=== PATIENT | male | born 1980 | race Caucasian/White ===

== ENCOUNTER → 2019-12-16 11:36 | Outpatient (CLI) | payer OTHER, SELFPAY ==
--- NOTE | ~2019-12-16 | XR_ITS ---
EXAMINATION: XR chest 2V DATE: 12/16/2019 12:10 INDICATION: Nicotine dependence. TECHNIQUE: Frontal and lateral views of the chest were obtained. COMPARISON: CT abdomen and pelvis 10/05/2017 FINDINGS: The chest demonstrates clear lungs without pneumonia, pleural effusion, or pneumothorax. Th e heart size is normal. IMPRESSION: 1. No acute cardiopulmonary disease. Reviewed, dictated and finalized at location B.
== END ==
PROVIDERS: PCP Family Medicine; Visit Provider Family Medicine
DX: F17.200 Nicotine dependence, unspecified, uncomplicated (principal)
CPT/HCPCS: 71046

== ENCOUNTER → 2020-01-27 07:46 | Outpatient (CLI) | payer OTHER, SELFPAY ==
--- NOTE | ~2020-01-27 | US_ITS ---
EXAMINATION: US right upper quadrant DATE: 01/27/2020 08:23 INDICATION: Follow-up of gallbladder. TECHNIQUE: Multiple grayscale and Doppler ultrasound images of the abdomen were obtained. COMPARISON: Ultrasound 02/08/2018, 08/18/2016, CT abdomen and pelvis 10/05/2017 FINDINGS: The visualized portions of the head and body of the pancreas are normal. There is diffuse h epatic steatosis. There is normal flow in main portal vein. The gallbladder is normal in size and con tains nonshadowing material, consistent with sludge. No gallbladder wall thickening or sonographic Mu rphy sign. The common duct is normal and measures 4 mm. IMPRESSION: 1. Gallbladder sludge. 2. Diffuse hepatic steatosis. Reviewed, dictated and finalized at location B.
== END ==
PROVIDERS: PCP Family Medicine; Visit Provider Family Medicine
DX: K82.4 Cholesterolosis of gallbladder (principal); K76.0 Fatty (change of) liver, not elsewhere classified
CPT/HCPCS: 76705

== ENCOUNTER → 2020-02-29 13:49 | Outpatient (CLI) | payer OTHER, SELFPAY ==
--- NOTE | ~2020-02-29 | CT_ITS ---
EXAMINATION: CT abdomen pelvis w con DATE: 02/29/2020 14:34 INDICATION: Lower abdominal pain. TECHNIQUE: Computed tomography (CT) of the abdomen and pelvis was performed with 100 mL Omnipaque-350 intravenous contrast. Automated exposure control and iterative reconstruction technique were employe d. The dose-length product was 1001.35 mGy-cm. COMPARISON: CT dated 10/05/2017 and ultrasound dated 01/27/2020 FINDINGS: Lung bases are clear. Heart size is normal. No pericardial or pleural effusion. Mild diffuse hepatic steatosis with more focal fat at the ligamentum teres. Again seen are a few peripheral 5 mm or smalle r soft tissue density likely benign gallbladder polyps. Spleen, pancreas, bilateral adrenal glands an d left kidney 6 mm right renal cyst. Are normal. Normal appendix. Mild scattered colonic diverticulos is. There is inflammatory stranding surrounding an approximately 10 cm length of proximal sigmoid col on with prominent edematous wall thickening likely related to diverticulitis with multiple tiny foci of extraluminal gas in the mesenteric fat surrounding high attenuation material containing small dive rticulum. No abscess or more remote free intraperitoneal gas. The stranding extends towards couple lo ops of otherwise normal-appearing small bowel in the central pelvis with no evident organized fistulo us communication. Small amount of likely reactive nonorganized free fluid in the pelvis. Bladder is n ormal. No pathologically enlarged abdominal or pelvic lymphadenopathy. No interval change in small [place] at the right femoral head, left acetabulum and left sacral ala. IMPRESSION: 1. Radiographically uncomplicated diverticulitis. Reviewed, dictated and finalized at location A. ER/WAITRESS ROOM SERVICE
== END ==
PROVIDERS: Visit Provider Nurse Practitioner Family
DX: R10.9 Unspecified abdominal pain (principal); K57.32 Diverticulitis of large intestine without perforation or abscess without bleeding
CPT/HCPCS: 74177; Q9967

== ENCOUNTER 2020-11-26 10:05 | Emergency (ER) | payer OTHER, SELFPAY ==
[2020-11-26 10:25] VITALS: BP 143/103; PULSE 80; RESP 20; TEMP 36.9; O2SAT 98
--- NOTE | 2020-11-26 10:43 | ED.GENADULT ---
HPI - General Adult General Chief complaint: Ear Stated complaint: ear Source: patient and RN notes reviewed Limitations: no limitations History of Present Illness HPI narrative: The unvaccinated patient, a smoker/drinker, presents with left ear discomfort. Patient states he has about 1/2-week history of left ear tenderness that is mild, worse with palpation. He attributes it to possible dental visit 2 weeks ago; however, he has been swimming late last week. No discharge, fever, URI?sinusitis, loss of taste/smell, CP, vomiting/diarrhea, S OB. Related Data Home Medications Medication Instructions Recorded Confirmed ezetimibe 10 mg PO DAILY 11/26/20 11/26/20 omeprazole 40 mg PO DAILY 11/26/20 11/26/20 simvastatin 40 mg PO DAILY 11/26/20 11/26/20 Allergies Allergy/AdvReac Type Severity Reaction Status Date / Time penicillin G Allergy Unknown RASH Verified 11/26/20 10:37 Review of Systems Review of Systems: The patient has been informed that they may have pre-hypertension or Hypertension based on a BP reading in the department. I recommend that the patient call the primary care provider listed on their discharge instructions or a physician of their choice this week to arrange follow up for further evaluation of possible pre-hypertension or Hypertension General/Constitutional: No weight loss,fever Eyes: N0: Redness,discharge Ears/Nose/Throat: No: Epistaxis,ear discharge Respiratory: Denies: Hemoptysis Gastrointestinal: No Vomiting, Bleeding-rectal Skin: No Lumps, eruption Neurologic: No Focal Weakness,Sz Hematologic: Denies: Petechiae/Purpura Psychiatric: No: Suicida ideationl All Other Systems: Reviewed and Negative PMFSH Social History Social History Gender identity (if verbalized by the patient): Male Comments At time of signature, agree with nursing past medical, surgical, social and family history. There is no relevant family history pertinent to the presenting complaint Exam Narrative: General Appearance: Well appearing, Well nourished, No distress EYE: PERRLA EOMI Ears: left EAC with mucopus; right TM ,external ear normal, Auditory canal normal Nose: Normal nose, Nares clear Mouth/Throat: Normal appearing, Normal lips, Supple, Respiratory: Airway patent, No respiratory distress Skin: Warm, Dry Neurological: A&O x3, , Normal affect Course Vital Signs Vital signs: Vital Signs Temperature 98.4 F 11/26/20 10:25 Pulse Rate 80 11/26/20 10:25 Respiratory Rate 20 11/26/20 10:25 Blood Pressure 143/103 H 11/26/20 10:25 Pulse Oximetry 98 11/26/20 10:25 Temperature 98.4 F 11/26/20 10:25 Pulse Rate 80 11/26/20 10:25 Respiratory Rate 20 11/26/20 10:25 Blood Pressure 143/103 H 11/26/20 10:25 Pulse Oximetry 98 11/26/20 10:25 Medical Decision Making Vital Signs Vital Signs: Vital Signs Temperature 98.4 F 11/26/20 10:25 Pulse Rate 80 11/26/20 10:25 Respiratory Rate 20 11/26/20 10:25 Blood Pressure 143/103 H 11/26/20 10:25 Pulse Oximetry 98 11/26/20 10:25 Temperature 98.4 F 11/26/20 10:25 Pulse Rate 80 11/26/20 10:25 Respiratory Rate 20 11/26/20 10:25 Blood Pressure 143/103 H 11/26/20 10:25 Pulse Oximetry 98 11/26/20 10:25 Discharge Plan Discharge Clinical Impression: Otitis externa Qualifiers: Otitis externa type: unspecified type Chronicity: acute Laterality: left Qualified Code(s): H60.502 - Unspecified acute noninfective otitis externa, left ear Patient Disposition: Home, Self-Care Condition: Stable Instructions: Swimmer's Ear (ED) Prescriptions: New vjfnbjar-oeafbaguq-MF 3.5-10,000-1 mg/mL-unit/mL-% solution 4 drop RIGHT EAR Q8H Qty: 10 RF: 0 tramadol 50 mg tablet 50 mg PO TID PRN (Reason: pain) Qty: 14 RF: 0 ciprofloxacin HCl [Cipro] 250 mg tablet 250 mg PO Q12H Qty: 6 RF: 0 No Action omeprazole 40 mg capsule,delayed release(DR/EC) 40 mg PO DAILY RF: 0 s
== END 2020-11-26 10:55 | disposition home or self-care (01) ==
PROVIDERS: Emergency Provider Emergency Medicine; PCP Nurse Practitioner Family
DX: H92.02 Otalgia, left ear (principal); H60.502 Unspecified acute noninfective otitis externa, left ear; E78.00 Pure hypercholesterolemia, unspecified; K21.9 Gastro-esophageal reflux disease without esophagitis
CPT/HCPCS: 99213; G0463

== ENCOUNTER → 2022-10-15 08:02 | Outpatient (CLI) | payer OTHER, SELFPAY ==
--- NOTE | ~2022-10-15 | US_ITS ---
Limited Abdominal Sonogram: Real-time sonographic imaging of the right upper quadrant was performed. Clinical History: Abnormal liver studies COMPARISON: 01/27/2020 Findings: The liver appears echogenic, with no evidence of mass lesion or bile duct dilatation. Main portal vein demonstrates normal direction of flow. The gallbladder is well distended, with multiple nonmobile well gallbladder wall polyps present. Polyps measure up to approximately 8-9 mm in maximum diameter.. The common bile duct measures 4 mm. The pancreas is largely obscured by bowel gas shadowi ng. Impression: Multiple apparent gallbladder wall polyps, similar appearance to prior exam. Diffuse fatty infiltration of liver. Reviewed, dictated and finalized at location . Impression: Multiple apparent gallbladder wall polyps, similar appearance to prior exam. Diffuse fatty infiltration of liver.
== END ==
PROVIDERS: PCP Nurse Practitioner Family; Visit Provider Nurse Practitioner Family
DX: R94.5 Abnormal results of liver function studies (principal); K82.4 Cholesterolosis of gallbladder; K76.0 Fatty (change of) liver, not elsewhere classified
CPT/HCPCS: 76705

== ENCOUNTER 2022-11-18 09:20 | Emergency (ER) | payer OTHER, SELFPAY ==
--- NOTE | ~2022-11-18 | XR_ITS ---
EXAMINATION: [id number] DATE: 11/18/2022 09:48 INDICATION: Chest injury and pain. TECHNIQUE: A frontal view of the chest and 2 views on 4 radiographs of the left ribs were obtained. COMPARISON: Chest 2 views 12/16/2019, CT abdomen and pelvis 02/29/2020 FINDINGS: The chest demonstrates clear lungs without pneumonia, pleural effusion, or pneumothorax. Th e heart size is normal. IMPRESSION: 1. No rib fracture. Reviewed, dictated and finalized at location A. IMPRESSION: 1. No rib fracture.
--- NOTE | 2022-11-18 09:21 | ED.FALL ---
HPI - Fall General Chief Complaint: Extremity Injury, Upper Stated Complaint: fall Time Seen by Provider: 11/18/22 09:21 Source: patient Mode of arrival: ambulatory Limitations: no limitations History of Present Illness MD complaint: other (Mr. Pineda is a 42-year-old male patient presenting to the clinic today with complaints of left rib pain after falling into railing on Thursday night. He reports he was coming down some stairs on the deck and missed a step and ran into the railing on his left side. Is having left rib pain. ) Related Data Home Medications Medication Instructions Recorded Confirmed ezetimibe 10 mg tablet 10 mg PO DAILY 11/26/20 11/18/22 omeprazole 40 mg capsule,delayed 40 mg PO DAILY 11/26/20 11/18/22 release simvastatin 40 mg tablet 40 mg PO DAILY 11/26/20 11/18/22 lisinopril 20 1 tablet PO DAILY 11/18/22 11/18/22 mg-hydrochlorothiazide 12.5 mg tablet trazodone 50 mg tablet 50 mg PO HS 11/18/22 11/18/22 Allergies Allergy/AdvReac Type Severity Reaction Status Date / Time penicillin G AdvReac Mild RASH Verified 11/18/22 09:21 Review of Systems Review of Systems: Pertinent positives per HPI. Patient denies any fever, chills, rash, headache, visual changes, dizziness, cough, runny nose, sore throat, shortness of breath, chest pain, palpitations, nausea, vomiting, diarrhea, constipation, abdominal pain, or any urinary issues. PMFSH Social History Social History Gender identity (if verbalized by the patient): Male Comments At the time of my signature, I reviewed and agree with the nursing past medical, surgical, social, and family history. There is no relevant family history pertinent to the patient complaint. Exam Narrative: General: Well-developed, well nourished, in no apparent distress Head: Normocephalic, atraumatic. Cardio: Regular rate and rhythm, s1 and s2 normal, no murmur appreciated. Resp: Clear to auscultation bilaterally, no rhonchi, rales, wheezing or rubs. Musculoskeletal: No deformity, bruising noted to the upper left ribs/lateral ribs, pain to palpation over the left anterior and lateral ribs, grossly normal range of motion, muscle strength strong and equal, peripheral pulse strong, no edema, no cyanosis, normal gait and station Course Course Emergency Course: Portions of this record may have been created with voice recognition software. Level of Care: Express Care Visit Vital Signs Vital signs: Vital signs reviewed MDM - Fall MDM Narrative Medical decision making narrative: At the time of visit patient is tearful on the exam table. Patient having pain with coughing, sneezing, and taking deep breaths. Has taken ibuprofen and Tylenol and has not touch the pain. Left unilateral ribs x-ray was performed in the clinic today and negative for any sign of fracture. I suspect patient has left rib contusion with acute chest wall pain. I will place the patient on a prescription for naproxen and give him a few days of tramadol. Incentive spirometer was given to the patient instructions how to use was reviewed. Supportive measures were discussed with the patient he voiced understanding discharge instructions and agrees to treatment plan Differential Diagnosis Differential diagnosis: Likely other (Rib fracture, rib contusion, chest wall contusion, pneumothorax, soft tissue injury) Imaging Data Radiologist's impression: [place] [address] XRay Report Signed Patient: Maximo Pineda : 1980 MR#: [id number] Age/Sex: 42 / M Acct:[id number] Loc: [facility]? ? ADM Date: 11/18/22Attending Dr: Ordering Physician: Aaron Richard APRN Date of Service: 11/18/22 Procedure(s): XR ribs LT w PA CXR Accession Number(s): [id number] cc: Clementina, Elba Ku APN; Aaron Richard APRN~ EXAMINATION: XR_RIBSL
[2022-11-18 09:23] VITALS: BP 161/90; PULSE 114; RESP 18; TEMP 36.1; O2SAT 99
== END 2022-11-18 10:07 | disposition home or self-care (01) ==
PROVIDERS: Emergency Provider Nurse Practitioner Family; PCP Nurse Practitioner Family
DX: S20.212A Contusion of left front wall of thorax, initial encounter (principal); W10.9XXA Fall (on) (from) unspecified stairs and steps, initial encounter; E78.00 Pure hypercholesterolemia, unspecified; I10 Essential (primary) hypertension; K21.9 Gastro-esophageal reflux disease without esophagitis
CPT/HCPCS: 71101; 99213; G0463

== ENCOUNTER 2023-05-30 10:59 | Emergency (ER) | payer OTHER, SELFPAY ==
[2023-05-30 11:17] VITALS: BP 138/68; PULSE 126; RESP 18; TEMP 37; O2SAT 97
--- NOTE | 2023-05-30 11:44 | ED.URI ---
HPI - URI/Sore Throat General Chief Complaint: Upper Respiratory Infection Stated Complaint: 102 temp,aches and pain,chills, hot flashes Time Seen by Provider: 05/30/23 11:26 Source: patient and RN notes reviewed Mode of arrival: ambulatory Limitations: no limitations History of Present Illness HPI Narrative: Patient presents today complaining of cough of fatigue that started last night with nausea, body aches, chills, postnasal drip, and fever up to 102 that started this morning. Patient had some brief influenza exposure. Related Data Home Medications Medication Instructions Recorded Confirmed ezetimibe 10 mg tablet 10 mg PO DAILY 11/26/20 05/30/23 omeprazole 40 mg capsule,delayed 40 mg PO DAILY 11/26/20 05/30/23 release simvastatin 40 mg tablet 40 mg PO DAILY 11/26/20 05/30/23 lisinopril 20 1 tablet PO DAILY 11/18/22 05/30/23 mg-hydrochlorothiazide 12.5 mg tablet trazodone 50 mg tablet 50 mg PO HS 11/18/22 05/30/23 Allergies Allergy/AdvReac Type Severity Reaction Status Date / Time penicillin G AdvReac Mild RASH Verified 05/30/23 11:08 Review of Systems Review of Systems: CONSTITUTIONAL: + fatigue, body aches, chills EYES: Denies visual changes, redness, or discharge. ENT: Denies rhinorrhea, congestion, sore throat, or otalgia.+ nausea CARDIOVASCULAR: Denies chest pain, palpitations, or edema. RESPIRATORY: Denies dyspnea.+ cough GASTROINTESTINAL: Denies abdominal pain, vomiting, or diarrhea.+ nausea GENITOURINARY: Denies dysuria or hematuria. SKIN: Denies rash, itching, or wounds. MUSCULOSKELETAL: Denies back pain, joint pain, or myalgia. NEUROLOGIC: Denies headache, numbness, tingling, or weakness. PSYCH: Denies depression or anxiety. [facility] Social History Social History Gender identity (if verbalized by the patient): Male Comments At time of signature, I have reviewed and agree with nursing past medical, surgical, social and family history unless otherwise noted. Please see nursing chart for further information. There is no relevant family history pertinent to the presenting complaint Exam Narrative: GENERAL: Mildly ill-appearing, well-nourished, and in no acute distress. HEAD: Normocephalic, atraumatic. EYES: EOMI. No redness or drainage. Conjunctivae normal. ENT: Mucous membranes pink and moist. Nares clear. No rhinorrhea. TMs normal bilaterally. Throat normal. Uvula midline. NECK: Normal AROM. Supple. No lymphadenopathy. CHEST: No respiratory distress. Clear to auscultation. HEART: Regular rate and rhythm. No murmur appreciated. EXTREMITIES: Normal range of motion. No edema. SKIN: Warm, dry, no rash. Capillary refill normal. Normal skin turgor. NEURO: No focal deficits. Alert and oriented x3. Gait steady. PSYCH: Normal affect. No signs of depression or anxiety. Course Course Level of Care: Express Care Visit Vital Signs Vital signs: Vital Signs Temperature 98.6 F 05/30/23 11:17 Pulse Rate 126 H 05/30/23 11:17 Respiratory Rate 18 05/30/23 11:17 Blood Pressure 138/68 05/30/23 11:17 Pulse Oximetry 97 05/30/23 11:17 Oxygen Delivery Room Air 05/30/23 11:17 Temperature 98.6 F 05/30/23 11:17 Pulse Rate 126 H 05/30/23 11:17 Respiratory Rate 18 05/30/23 11:17 Blood Pressure 138/68 05/30/23 11:17 Pulse Oximetry 97 05/30/23 11:17 Oxygen Delivery Room Air 05/30/23 11:17 Reviewed MDM - URI/Sore Throat MDM Narrative Medical decision making narrative: Testing negative. Symptoms likely viral. Since patient came in the early within his symptoms starting, could still have influenza with a negative result today. Patient would like to try some Tamiflu to see if this makes a difference with his symptoms. Prescription sent to pharmacy. Anticipatory guidance given. Differential Diagnosis Differential diagnosis: Likely upper respiratory infection, sinusitis, viral infecti
== END 2023-05-30 11:48 | disposition home or self-care (01) ==
PROVIDERS: Emergency Provider Nurse Practitioner; PCP Nurse Practitioner Family
DX: J11.1 Influenza due to unidentified influenza virus with other respiratory manifestations (principal); E78.00 Pure hypercholesterolemia, unspecified; I10 Essential (primary) hypertension; K21.9 Gastro-esophageal reflux disease without esophagitis
CPT/HCPCS: 99213; G0463

== ENCOUNTER 2024-08-25 15:23 | Outpatient (CLI) | payer OTHER, SELFPAY ==
--- NOTE | ~2024-08-25 | CT_ITS ---
Non-contrast CT scan of the Abdomen and Pelvis Clinical indication: Bilateral groin pain Technique: 2.5 mm axial scans were obtained through the abdomen and pelvis without intravenous or or al contrast. Dose reduction technique was used on this scan by utilizing automated exposure control a nd iterative reconstruction technique. The dose-length product (DLP) was 1020.56 mGy-cm. Findings: Images through the lung bases reveal no abnormalities. There is no evidence of renal or ureteral calculi. The kidneys and the ureters are nondilated. The liver, spleen, pancreas, and adrenals appear normal. Small gallstones are present. There is no ao rtic aneurysm. There is wall thickening and pericolic inflammatory change the mid sigmoid colon. Questionable 1.3 cm developing intramural abscess. No free air. No bowel obstruction. Images through the pelvis were performed. There is no evidence of ascites or lymphadenopathy. Urinary bladder unremarkable. No pelvic mass evident. Impression: Acute sigmoid diverticulitis with questionable 1.3 cm developing intramural abscess. No free air or b owel obstruction. Reviewed, dictated and finalized at [facility]. Impression: Acute sigmoid diverticulitis with questionable 1.3 cm developing intramural abs cess. No free air or bowel obstruction.
== END 2024-08-25 15:24 | disposition home or self-care (01) ==
PROVIDERS: Visit Provider Family Medicine
DX: K57.32 Diverticulitis of large intestine without perforation or abscess without bleeding (principal)
CPT/HCPCS: 74176

== ENCOUNTER 2024-09-08 07:54 | Outpatient (CLI) | payer OTHER, SELFPAY ==
--- NOTE | ~2024-09-08 | MR_ITS ---
MRI of the right shoulder Technique: Axial proton-density fat-sat images, coronal proton density fat-sat and T2 fat-sat images, and sagittal T1-weighted and T2 fat-sat images were acquired. Clinical History: Pain Findings: There is mild AC joint degenerative change. Coracoclavicular, coracoacromial, and coracohum eral ligaments are intact. Supraspinatus and infraspinatus tendons are intact, without partial or full-thickness tear. There is mild tendinosis. Subscapularis tendon intact with mild to moderate tendinosis. Tendon of long head of the biceps is intact. There is superior labral tear, extending to the posterior superior and probably anterosuperior aspect s. Inferior glenohumeral ligament is intact. No significant degenerative change or effusion of the gleno humeral joint. No fluid distention of the subacromial/subdeltoid bursa. No muscle atrophy or edema. Impression: SLAP tear of the labrum, as detailed above. Mild AC joint degenerative change. Reviewed, dictated and finalized at location . Impression: SLAP tear of the labrum, as detailed above. Mild AC joint degenerative change.
== END 2024-09-08 07:55 | disposition home or self-care (01) ==
PROVIDERS: Visit Provider Nurse Practitioner Family
DX: S43.431A Superior glenoid labrum lesion of right shoulder, initial encounter (principal); M19.011 Primary osteoarthritis, right shoulder; X58.XXXA Exposure to other specified factors, initial encounter
CPT/HCPCS: 73221